=== PATIENT | male | born 1990 | race Caucasian/White ===

== ENCOUNTER 2020-11-03 | Emergency (ER) | payer BC ==
[2020-11-03] MEDS ORDERED: Fluorescein Opthalmic Strip ONE (00:07)
[2020-11-03] MEDS ORDERED: Tetracaine 0.5% PF 4 ML BOT ONE (00:07)
[2020-11-03] MEDS ORDERED: Neomycin-Polymyxin-Hc 7.5 ML BOT ONE (00:30)
== END 2020-11-03 00:45 | disposition home or self-care (01) ==
LOC: BURERS
DX: H02.844 Edema of left upper eyelid (principal)
CPT/HCPCS: 99283